=== PATIENT | female | born 1955 | race Two or more races ===

== ENCOUNTER → 2021-10-18 | Outpatient (CLI) | payer BC, OTHER ==
[~2021-10-18] VITALS: Ht 157.5 cm; Wt 86.2 kg
[2021-10-18] VITALS (8 sets, daily range): BP systolic 91–104; BP diastolic 56–65
[~2021-10-18] MED LIST: ACETAMINOPHEN 325 MG TAB PO ONE; REGENERON 1200mg/250ml NS 250 ML IV ONE
== END | disposition home or self-care (01) ==
LOC: ER 15:16
PROVIDERS: ATTEND Internal Medicine
DX: U07.1 COVID-19 (principal)
CPT/HCPCS: J7050; M0243; Q0244

== ENCOUNTER 2024-08-08 09:00 | Inpatient (IN) | payer BC, MEDICARE ==
[2024-08-05 11:11] LABS: Basophils # (auto) 0 10 ^3/uL (0-0.2); Basophils % (auto) 0.5 % (0.0-2.0); Eosinophils # (auto) 0.1 10 ^3/uL (0-0.8); Eosinophils % (auto) 1.3 % (0.0-7.0); Hematocrit 47.5 % (36.0-46.0); Hemoglobin 16.5 g/dL (12.2-16.2); Lymphocytes # (auto) 1.5 10 ^3/uL (0.4-5.4); Mean Corpuscular Hemoglobin 32.4 pg (28.0-32.0); Mean Corpuscular Hgb Conc. 34.8 g/dL (32.0-36.0); Mean Corpuscular Volume 93.2 fL (80.0-100.0); Monocytes # (auto) 0.5 10 ^3/uL (0-1.3); Monocytes % (auto) 7.6 % (0.0-12.0); Neutrophils % (auto) 65.6 % (37.0-80.0); Nucleated Red Blood Cells % 0.1 %; Platelet Count (auto) 234 10^3/uL (140-450); Red Cell Distribution Width 13.5 % (11.8-14.3); White Blood Cell 6.1 10^3/uL (4.4-10.8)
[2024-08-05 11:30] LABS: INR 1.03 (0.9-1.15); Partial Thromboplastin Time 27.6 SEC (24.5-34.5); Prothrombin Time 10.9 sec (9.3-11.8)
[2024-08-05 11:51] LABS: Alanine Aminotransferase 17 U/L (7-40); Alkaline Phosphatase 150 U/L (46-116); BUN/Creatinine Ratio 21.8 (10.0-20.0); Blood Urea Nitrogen 17 mg/dL (9-23); Calcium 10.9 mg/dL (8.7-10.4); Chloride 109 mmol/L (98-107); Glucose 101 mg/dL (74-106); Potassium 4.3 mmol/L (3.5-5.1); Sodium 140 mmol/L (136-145)
[2024-08-05 11:52] LABS: Albumin 4.5 g/dL (3.2-4.8); Aspartate Aminotransferase 13 U/L (13-40); Bilirubin, Total 0.6 mg/dL (0.2-1.0)
[2024-08-05 12:11] LABS: Anion Gap 6 (5-15); Carbon Dioxide 25 mmol/L (20-30)
[~2024-08-08] VITALS: Ht 157.5 cm; Wt 95.8 kg
[~2024-08-08 09:00] MED LIST changes: -ACETAMINOPHEN 325 MG TAB PO ONE; +LOSA-535 PO; -REGENERON 1200mg/250ml NS 250 ML IV ONE
[2024-08-08] MEDS ORDERED: LIDOCAINE 1% INJ PF 5ML AMP ONE (10:13)
[2024-08-08] MEDS ORDERED: MIDAZOLAM HCL 2MG/2ML 2ml VIAL (1mg/ml) ONE (10:13)
[2024-08-08] MEDS ORDERED: PROPOFOL 10 MG/ML 20 ML IV ONE (10:13)
[2024-08-08] MEDS ORDERED: GLYCOPYRROLATE 0.2 MG/ML 1ML VIAL ONE (10:13)
[2024-08-08] MEDS ORDERED: DexAMETHasone SOD PHOS 10MG/1ML VIAL INJ ONE (10:13)
[2024-08-08] MEDS ORDERED: fentaNYL CITRATE 5 ML ONE (10:13)
[2024-08-08] MEDS ORDERED: LIDOCAINE HCL 2% TOP JELLY 5ML TOP ONE (10:13)
[2024-08-08] MEDS ORDERED: NEOSTIGMINE 1 MG/ML INJ (10mg/10ML VIAL) ONE (10:13)
[2024-08-08] MEDS ORDERED: ONDANSETRON HCL 4 MG/2 ML VIAL ONE (10:13)
[2024-08-08] MEDS ORDERED: ROCURONIUM 10MG/ML 10ML VIAL IV ONE (10:13)
[2024-08-08] MEDS ORDERED: fentaNYL CITRATE 100 MCG/2 ML VL ONE (10:13)
[2024-08-08] MEDS ORDERED: SODIUM CHLORIDE LOCK 40 ML ONE (10:13)
[2024-08-08] MEDS ORDERED: KETAMINE 50mg/ML 1ml syringe ONE (10:13)
[2024-08-08] MEDS ORDERED: MEPERIDINE HCL (25 MG/ML) 1ML VIAL ONE (10:13)
[2024-08-08] MEDS: ceFAZolin 2 GM/D5W100ml 100 ML IV ONE (11:01)
[2024-08-08] MEDS: METOCLOPRAMIDE HCL 5MG/ml INJ 2ml VIAL IV ONE (11:15)
[2024-08-08] MEDS ORDERED: HYDROmorphone HCL 2 MG/ML VL/or syr IV PRN ×2 (11:15)
[2024-08-08] MEDS ORDERED: KETOROLAC TROMETH 30 MG/ML 1ML VIAL IV ONE (11:15)
[2024-08-08] MEDS ORDERED: fentaNYL CITRATE 100 MCG/2 ML VL IV PRN (11:15)
[2024-08-08 12:01] LABS: Urine Bacteria None Seen /hpf (None Seen)
[2024-08-08 12:24] LABS: Urine Blood Negative /uL (Negative); Urine Clarity Clear (Clear); Urine Color Light-Yellow (Yellow); Urine Protein, UAD Negative (Negative); Urine Specific Gravity 1.019 (1.001-1.035); Urine Urobilinogen Normal (Negative); Urine WBC 3 /hpf (0 - 5); Urine pH 5.5 (5.0-9.0)
[2024-08-08] MEDS: ceFAZolin 1GM/50ML 50 ML IV ONE (12:45)
[2024-08-08] MEDS ORDERED: MORPHINE SULFATE INJ 2 MG/ml SYRG IV PRN (12:45)
[2024-08-08] MEDS ORDERED: NITROGLYCERIN 0.4 MG SL TAB SL PRN (12:45)
[2024-08-08] MEDS: METHYLENE BLUE 0.5% 5MG/ML 10ml AMP IV ONE (13:48)
[2024-08-08] MEDS: BUPIVACAINE 0.25% INJ 50ML VIAL ONE (14:55)
[2024-08-08] MEDS: LIDOCAINE W/ EPINEPHRINE 1% 20ML VIAL ONE (14:55)
[2024-08-08] MEDS ORDERED: CONJ ESTROGENS 0.625MG/GM VAG CRM 30GM PV ONE (14:56)
[2024-08-08 15:08] VITALS: PULSE 90; RESP 13; O2SAT 95
[2024-08-08] MEDS: MORPHINE SULFATE INJ 2 MG/ml SYRG IV PRN (17:10)
[2024-08-08 18:06] VITALS: BP 110/47; PULSE 55; RESP 16; RESP 18; TEMP 98.3; O2SAT 96
[2024-08-08 20:00] VITALS: PULSE 61; PULSE 79; RESP 18; O2SAT 95
[2024-08-08 21:00] VITALS: BP 104/62; PULSE 79; RESP 18; TEMP 97.5; O2SAT 95
[2024-08-08 22:00] VITALS: PULSE 61; PULSE 79; RESP 18; O2SAT 95
[2024-08-09] VITALS (8 sets, daily range): BP systolic 101–109; BP diastolic 35–73; PULSE 63–78; RESP 14–20; TEMP 36.8; O2SAT 94–97
[2024-08-09] MEDS: ONDANSETRON HCL 4 MG/2 ML VIAL IV PRN (03:43)
[2024-08-09] MEDS: MORPHINE SULFATE 4 MG/ML SYR/VIAL IV PRN (03:45)
[2024-08-09] MEDS ORDERED: HYDR1TAB97 PO (03:57)
[2024-08-09] MEDS ORDERED: OMEP1CAP70 PO (03:57)
[2024-08-09 07:52] LABS: Basophils # (auto) 0 10 ^3/uL (0-0.2); Basophils % (auto) 0.1 % (0.0-2.0); Eosinophils # (auto) 0 10 ^3/uL (0-0.8); Hematocrit 36.9 % (36.0-46.0); Lymphocytes # (auto) 0.9 10 ^3/uL (0.4-5.4); Lymphocytes % (auto) 7.9 % (10.0-50.0); Mean Corpuscular Hemoglobin 32.9 pg (28.0-32.0); Mean Corpuscular Hgb Conc. 35.2 g/dL (32.0-36.0); Mean Corpuscular Volume 93.3 fL (80.0-100.0); Monocytes # (auto) 0.7 10 ^3/uL (0-1.3); Monocytes % (auto) 6.1 % (0.0-12.0); Neutrophils # (auto) 9.5 10 ^3/uL (1.6-8.6); Neutrophils % (auto) 85.9 % (37.0-80.0); Platelet Count (auto) 217 10^3/uL (140-450); Red Blood Cells 3.95 10^6/uL (4.0-5.20); Red Cell Distribution Width 13.3 % (11.8-14.3); White Blood Cell 11.1 10^3/uL (4.4-10.8)
[2024-08-18] MEDS ORDERED: LEVO750T40 PO (09:24)
== END 2024-08-09 15:00 | disposition home or self-care (01) | DRG 743 ==
LOC: SUR 09:00 → OVERFLOW 12:52 → EAST 17:57 → TELE-EAST 18:16
PROVIDERS: ADMIT Obstetrics & Gynecology; ATTEND Obstetrics & Gynecology
PROC: 0UBG4ZZ Excision of Vagina, Percutaneous Endoscopic Approach (ICD-10-PCS; 2024-08-08)
PROC: 0UT74ZZ Resection of Bilateral Fallopian Tubes, Percutaneous Endoscopic Approach (ICD-10-PCS; 2024-08-08)
PROC: 0UB24ZZ Excision of Bilateral Ovaries, Percutaneous Endoscopic Approach (ICD-10-PCS; 2024-08-08)
PROC: 0JUC3JZ Supplement of Pelvic Region Subcutaneous Tissue and Fascia with Synthetic Substitute, Percutaneous Approach (ICD-10-PCS; 2024-08-08)
PROC: 8E0W4CZ Robotic Assisted Procedure of Trunk Region, Percutaneous Endoscopic Approach (ICD-10-PCS; 2024-08-08)
PROC: 0TJB8ZZ Inspection of Bladder, Via Natural or Artificial Opening Endoscopic (ICD-10-PCS; 2024-08-08)
PROC: 0UT94ZL Resection of Uterus, Supracervical, Percutaneous Endoscopic Approach (ICD-10-PCS; principal; 2024-08-08 12:02)
DX: N81.4 Uterovaginal prolapse, unspecified (principal); N89.8 Other specified noninflammatory disorders of vagina; N39.3 Stress incontinence (female) (male); Z79.899 Other long term (current) drug therapy
CPT/HCPCS: 36415; 80053; 81001; 85025; 85610; 85730; 86850; 86900; 86901; 87086; 97163; C1771; G0378; J1100; J2250; J2405; J2704; J3490